=== PATIENT | female | born 1940 | race Caucasian/White ===

== ENCOUNTER 2016-05-20 07:17 | Day surgery (SDC) | payer MEDICARE, OTHER ==
[~2016-05-20] VITALS: Ht 157.5 cm; Wt 72.7 kg
[~2016-05-20 07:17] MED LIST: 0.9% Sodium Chloride 1,000 ML IV SCH; AMLO5TAB2 PO; ASPI-628 PO; ATEN25TA PO; FLUT16SP NS; RANI300C PO; SIMV40TA5 PO; Sodium Chloride LOK Flush 10 mL Syringe IV PRN; fentaNYL-PF 50 mCg/mL 2 mL Inj IVPUSH PRN
[2016-05-20 07:31] VITALS: BP 152/84; PULSE 67; RESP 14; O2SAT 98
[2016-05-20 08:26] VITALS: BP 104/59; PULSE 58; RESP 12; O2SAT 91
[2016-05-20 08:40] VITALS: BP 99/58; PULSE 62; RESP 14; O2SAT 97
[2016-05-20 08:55] VITALS: BP 97/63; PULSE 67; RESP 16; O2SAT 97
--- NOTE | 2016-05-20 08:58 | ENDO ---
[address] [address] ENDOSCOPY PROCEDURE PATIENT: ABRAHAM RUSH : 1940 MR#: [id number] ADMIT: 05/20/2016 JOB ID: [id number] DATE OF SERVICE: 05/20/2016 TYPE OF OPERATION: 1. Esophagogastroduodenoscopy with biopsy. 2. Colonoscopy with biopsy. PREOPERATIVE DIAGNOSIS(ES): 1. Diarrhea. 2. Gastroesophageal reflux disease. POSTOPERATIVE DIAGNOSIS(ES): 1. Normal upper endoscopy, status post biopsy. 2. Tortuous sigmoid colon most likely due to adhesions. 3. Moderate diverticulosis of the sigmoid. 4. A 2 mm cecal polyp and a 2 mm rectal polyp, removed by cold biopsy forceps. 5. Small internal hemorrhoids. ANESTHESIA: Fentanyl 125 mcg, Versed 5 mg IV administered. COMPLICATIONS: None. BLOOD LOSS: Minimal. DESCRIPTION OF PROCEDURE: After risks and benefits explained to the patient, informed consent was obtained. After anesthesia administered, an upper endoscope was then inserted in the mouth, intubated into the esophagus, stomach, second portion of duodenum. Mucosa carefully examined. After procedure was done, the scope withdrawn and procedure terminated. A colonoscope was then inserted per rectum to the terminal ileum. Mucosa carefully examined. Prep of the patient was excellent. After procedure was done, the scope withdrawn and procedure terminated. FINDINGS: Upon inspection of the esophagus, esophagus was normal without masses, ulcers, or lesions. Z-line located 40 cm from incisors. Upon entering stomach, the stomach was also normal without masses, ulcers, or lesions. Retroflexion was normal. Duodenal bulb, first and second portions were normal. Biopsies taken from the duodenum, antrum, body of the stomach and distal esophagus. Upon inspection of the anus, no masses, hemorrhoids, ulcers, or fissures that were seen. Throughout the entire examination, there was a 2 mm rectal polyp and a 2 mm cecal polyp, removed by cold biopsy forceps. The sigmoid colon was tortuous most likely due to adhesions. There is moderate sigmoid diverticulosis and ascending colon diverticulosis. Retroflexion showed small internal hemorrhoids. IMPRESSION: 1. Small internal hemorrhoids. 2. Tortuous sigmoid colon most likely due to adhesions. 3. Moderate sigmoid and ascending colon diverticulosis. 4. Small internal hemorrhoids. 5. Normal upper endoscopy. RECOMMENDATIONS: Await pathology results. High-fiber diet. If tubular adenoma, then next colonoscopy in five years.
[2016-05-20 09:11] VITALS: BP 141/65; PULSE 57; RESP 14; O2SAT 95
--- NOTE | 2016-05-22 10:10 | PATH ---
SURGICAL PATHOLOGY Attending Physician:Salvatore Lepe MD CASE STATUS: Signed Out PATIENT NAME: ABRAHAM RUSH PID: [id number] : 1940 DATE COLLECTED:05/20/2016 15:18 SPECIMEN: 1: Duodenum, Biopsy 2: Stomach, Antrum, Biopsy 3: Gastric, Biopsy 4: Esophagus, Biopsy 5: Ileum, Biopsy 6: Colon, Biopsy 7: Colon, Biopsy 8: Rectum, Biopsy CLINICAL HISTORY: 1: DUODENAL BIOPSY 2: ANTRUM BIOPSY 3: GASTRIC BODY BIOPSY 4: DISTAL ESOPHAGUS BIOPSY 5: TI BIOPSY 6: RANDOM COLON BIOPSY 7: CECAL POLYP X1 8: RECTAL POLYP FINAL DIAGNOSIS: 1.DUODENAL BIOPSY: FRAGMENTS OF NORMAL-APPEARING SMALL BOWEL MUCOSA. Normal delicate mucosal villi present. Negative for significant inflammation, dysplasia and malignancy. 2.ANTRUM BIOPSY: MILD CHRONIC GASTRITIS INVOLVING ANTRAL MUCOSA. Negative for evidence of Helicobacter. Negative for intestinal metaplasia. Negative for dysplasia and malignancy. 3.GASTRIC BODY BIOPSY: MILD CHRONIC GASTRITIS INVOLVING FUNDIC MUCOSA. Negative for evidence of Helicobacter. Negative for intestinal metaplasia. Negative for dysplasia and malignancy. 4.DISTAL ESOPHAGUS BIOPSY: FRAGMENTS OF SQUAMOUS EPITHELIUM WITH NONSPECIFIC REACTIVE CHANGES. NO GASTRIC-TYPE EPITHELIUM IDENTIFIED. Eosinophils are not increased. 5.TERMINAL ILEUM BIOPSY: FRAGMENTS OF NORMAL-APPEARING TERMINAL ILEUM MUCOSA. Negative for granulomas. Negative for significant inflammation, dysplasia and malignancy. 6.RANDOM COLON BIOPSIES: SINGLE FRAGMENT OF COLON MUCOSA WITH FOCAL MUCOSAL SCARRING CONSISTENT WITH PREVIOUS MUCOSAL INJURY. ALL OTHER MUCOSAL FRAGMENTS APPEAR NORMAL WITH NO SIGNIFICANT ARCHITECTURAL DISTORTION, INFLAMMATION, DYSPLASIA OR MALIGNANCY. 7.CECAL POLYP: TUBULAR ADENOMA INVOLVING SINGLE BIOPSY FRAGMENT. 8.RECTAL POLYP: FOCAL CHANGES CONSISTENT WITH SMALL HYPERPLASTIC POLYP. ICD10 CODE K29.70 GROSS DESCRIPTION: The specimen is received in eight formalin filled containers labeled with the patient's name. 1). The specimen is sublabeled "duodenal" and consists of 2 portions of tissue which aggregate to 0.5 x 0.3 x 0.2 CM. The specimen is entirely submitted in cassette 1A. 2). The specimen is sublabeled "antrum" and consists of 2 portions of tissue which aggregate to 0.3 x 0.3 x 0.2 CM. The specimen is entirely submitted in cassette 2A. 3). The specimen is sublabeled "gastric body" and consists of 2 portions of tissue which aggregate to 0.3 x 0.3 x 0.2 CM. The specimen is entirely submitted in cassette 3A. 4). The specimen is sublabeled "distal esophagus" and consists of 3 portions of tissue which aggregate to 0.3 x 0.3 x 0.2 CM. The specimen is entirely submitted in cassette 4A. 5). The specimen is sublabeled " TI " and consists of 2 portions of tissue which aggregate to 0.5 x 0.3 x 0.2 CM. The specimen is entirely submitted in cassette 5A. 6). The specimen is sublabeled "random colon" and consists of multiple portions of tissue which aggregate to 0.4 x 0.4 x 0.3 CM. The specimen is entirely submitted in cassette 6A. 7). The specimen is sublabeled "cecal polyp" and consists of 2 portions of tissue which aggregate to 0.3 x 0.2 x 0.2 CM. The specimen is entirely submitted in cassette 7A. 8). The specimen is sublabeled "rectal polyp" and consists of a 0.3 x 0.2 x 0.2 CM portion of tissue which is entirely submitted in cassette 8A. 05/20/2016 DAC MICRO DESCRIPTION: See diagnosis. ICD-9 CODES: CPT CODES: 1: 06982 2: 15771 3: 43023 4: 07765 5: 60365 6: 54375 7: 74313 8: 29894 Electronically Signed Out Domingo Torrez MD [facility] Pathology [facility] [address], [place] [address] Technical component performed at [facility], [facility] [address], [place], [address]
== END 2016-05-20 23:59 | disposition home or self-care (01) ==
LOC: END 07:17
PROVIDERS: ATTEND Internal Medicine Gastroenterology
DX: R19.7 Diarrhea, unspecified (principal); D12.0 Benign neoplasm of cecum; K62.1 Rectal polyp; K57.30 Diverticulosis of large intestine without perforation or abscess without bleeding; K64.8 Other hemorrhoids; K29.50 Unspecified chronic gastritis without bleeding; K21.9 Gastro-esophageal reflux disease without esophagitis; I10 Essential (primary) hypertension; E78.00 Pure hypercholesterolemia, unspecified; E11.9 Type 2 diabetes mellitus without complications; Z79.82 Long term (current) use of aspirin
CPT/HCPCS: 43239; 45380; 88305; 99153; G0500; J2250; J3010; J7030